=== PATIENT | female | born 1975 | race Asian ===

== ENCOUNTER 2017-08-25 12:16 | Day surgery (SDC) | payer BC | END 2017-08-25 15:40 | disposition home or self-care (01) | LOC: OR 12:16 | PROC: 0DB68ZZ Excision of Stomach, Via Natural or Artificial Opening Endoscopic (ICD-10-PCS; principal; 2017-08-25) | PROC: 0DB88ZZ Excision of Small Intestine, Via Natural or Artificial Opening Endoscopic (ICD-10-PCS; 2017-08-25) | DX: K21.0 Gastro-esophageal reflux disease with esophagitis (principal); K29.50 Unspecified chronic gastritis without bleeding; B96.81 Helicobacter pylori [H. pylori] as the cause of diseases classified elsewhere; R10.11 Right upper quadrant pain; R10.13 Epigastric pain | CPT/HCPCS: J2704 ==